=== PATIENT | male | born 1985 | race Caucasian/White ===

== ENCOUNTER 2023-08-13 23:20 | Emergency (ER) | payer OTHER, SELFPAY ==
[2023-08-13 23:22] VITALS: BP 131/72; PULSE 70; RESP 22; TEMP 36.8; O2SAT 96; BMI 31.7
--- NOTE | 2023-08-13 23:29 | ECG_ITS ---
APPROVED REPORT Exam: Resting ECG HR:77 bpm ECG Measurements Heart Rate 77 AXES IN 147 P 54 QRSd 88 QRS 75 QT 362 T 65 QTc 394 Conclusion SINUS RHYTHM NORMAL ECG UNCONFIRMED REPORT Electronically signed by : Oleg Lopes MD 08/15/2023 15:07:43
[2023-08-13 23:34] VITALS: BP 131/72; PULSE 68; RESP 20; O2SAT 99
--- NOTE | 2023-08-13 23:41 | HMH.EDGENADL ---
Discharge Plan Disposition Patient Disposition: Home, Self-Care Condition: Good Prescriptions Prescriptions: New methocarbamol 500 mg tablet 1,500 mg PO Q6H PRN (Reason: neck ) 5 Days Qty: 30 0RF lidocaine 5 % adhesive patch,medicated 1 patch topical DAILY PRN (Reason: pain) Qty: 30 0RF Rx Instructions: leave on most painful area for up to 12 hrs No Action ranitidine HCl 150 MG tablet 150 mg PO DAILY amoxicillin 500 MG tablet 500 mg PO TID Referrals Follow up/Referrals: Provider,Referral, [Primary Care Provider] - See instructions Activity Restrictions/Add. Instructions Additional Instructions/Restrictions: Please take medications as prescribed. Please take Tylenol 1 g p.o. every 6 hours, ibuprofen 600 mg every 6 hours as needed for pain. please follow-up with your primary care provider. Please return to the emergency department if you develop any new or worsening symptoms or become concerned for your health. Clinical Impressions Clinical Impression: Strain of neck muscle Instructions Patient Instructions: DI for Neck Pain Discharge ED Provider: Eric Jordan General Adult HPI General Chief complaint: Neck Pain/Injury Stated complaint: Pain in neck Time Seen by Provider: 08/13/23 23:25 History of Present Illness HPI narrative: 38-year-old male reportedly previously healthy presents with worsening neck pain. He reports that he felt like he strained it days ago after he sneezed. It has slowly and gradually gotten worse. He now feels like it is spasming and very severe. He reports that it limits his range of motion of the neck due to pain. Reports no other associated trauma. He has no radiating numbness or weakness in the arms or legs. Reports he tried baclofen at home prior to arrival without improvement. Denies any history of injection drug use. He is not on any antipsychotics. He reports no fever or infectious symptoms of any kind. Denies headache. Related Data Home Medications Medication Instructions Recorded Confirmed ranitidine HCl 150 mg tablet 150 mg PO DAILY GERD 04/14/18 04/15/18 amoxicillin 500 mg tablet 500 mg PO TID dental infection 04/15/18 04/15/18 Previous Rx's Medication Instructions Recorded lidocaine 5 % topical patch 1 patch topical DAILY PRN pain #30 08/14/23 ea methocarbamol 500 mg tablet 1,500 mg PO Q6H PRN neck 5 days 08/14/23 #30 tabs Allergies Allergy/AdvReac Type Severity Reaction Status Date / Time No Known Allergies Allergy Verified 04/15/18 09:25 [facility] Disclaimer: The information contained in this section may have been updated after the patient was seen, as this information can be updated by other users. Social History Smoking Status: Current every day smoker tobacco type: pipe alcohol intake: current current occupational status: other Travel in the last 8 weeks: None ROS Obtained: Yes All systems reviewed & no additional complaints except as documented Physical Exam General General appearance: alert and anxious Head Head exam: atraumatic and normocephalic Eye Eye exam: Present normal appearance, PERRL and EOMI ENT ENT exam: Present normal oropharynx and normal external ear exam Neck Neck exam: Present other (Severe paraspinal tenderness to palpation, no overlying skin changes, patient is able to range neck mildly but with pain. Passive range of motion intact) Chest Chest inspection: Present normal inspection and symmetric chest wall rise; Absent tenderness Respiratory Respiratory exam: Present normal lung sounds bilaterally; Absent respiratory distress Cardiovascular Cardiovascular exam: Present regular rate and normal rhythm Abdominal Exam Abdominal exam: Present soft; Absent distention, tenderness or guarding Extremities Exam Extremities exam: Present normal inspection; Absent edema or joint swelling Back Exam Back exam: Present normal inspection; Absent tenderness Neurological
[2023-08-14] VITALS: BP 127/81; PULSE 70; RESP 16; O2SAT 96
--- NOTE | 2023-08-14 00:47 | PC.NURSE ---
in room talking with patient at this time.
[2023-08-14 01:02] VITALS: BP 122/63; PULSE 71; RESP 14; TEMP 36.6; O2SAT 95
== END 2023-08-14 01:03 | disposition home or self-care (01) ==
PROVIDERS: Emergency Provider Emergency Medicine
DX: S16.1XXA Strain of muscle, fascia and tendon at neck level, initial encounter (principal); F17.200 Nicotine dependence, unspecified, uncomplicated; X50.1XXA Overexertion from prolonged static or awkward postures, initial encounter; M54.2 Cervicalgia
CPT/HCPCS: 93005; 96374; 99284

== ENCOUNTER 2024-03-21 17:32 | Emergency (ER) | payer SELFPAY ==
[2024-03-21 18:15] VITALS: BP 142/97; PULSE 78; RESP 17; TEMP 37.3; O2SAT 98; BMI 34.8
--- NOTE | 2024-03-21 18:45 | EXP.UTC ---
Discharge Plan Disposition Patient Disposition: Home, Self-Care Condition: Good Prescriptions Prescriptions: New ondansetron 4 mg tablet,disintegrating 4 mg PO Q8H PRN (Reason: nausea and vomiting) Qty: 10 0RF No Action escitalopram oxalate 10 mg tablet 10 mg PO DAILY Patient Comments: TAKE 1 TABLET BY MOUTH ONCE DAILY hydroxyzine HCl 50 mg tablet 100 mg PO QID trazodone 100 mg tablet 100 mg PO HS Patient Comments: TAKE 1 TABLET BY MOUTH ONCE DAILY AT NIGHT DIRECTED FOR SLEEP Referrals Follow up/Referrals: Jolly Morfin APRN [Primary Care Provider] - See instructions Activity Restrictions/Add. Instructions Additional Instructions/Restrictions: Drink extra fluids with and between meals. If you have difficulty drinking, try very small amounts of water or suck on ice chips. ? Avoid fruit juices, as these do not replace minerals and can actually increase diarrhea. ? Children and adults can use sports drinks to replenish electrolytes. Younger children and infants should use products formulated for children, like oral rehydration solutions. ? Eat food in small amounts and let your stomach recover. ? Get lots of rest. You may feel tired or weak. ? No greasy or fried foods for the next 24-48 hours BRAT diet Bananas Rice Apples and [place] ? Make sure to drink plenty of liquids ? Return if needed ? Straight to ER if any life threatening symptoms ? Zofran as prescribed ? Follow up with family doctor in the next 48-72 hours if no improvement or any worsening of symptoms Clinical Impressions Clinical Impression: Nausea & vomiting Stand Alone Forms Stand Alone Forms: Work/School Release Instructions Patient Instructions: Nausea and Vomiting-Adult Discharge ED Provider: Ariadna Fay [facility] [place] General Stated complaint: vomiting, Mode of Arrival: Ambulatory Source of Information: Patient Limitations: No Limitations Time Seen by Provider: 03/21/24 18:45 Description of Symptoms (Recalled from Triage Doc. by RN): Pt's symptoms are vomiting. HEENT Symptoms (Recalled from RN notes): Yes Resp Symptoms (Recalled from RN notes): No Skin Symptoms (Recalled from RN notes): No MS Symptoms (Recalled from RN notes): No Functional Status (Recalled from RN notes): n/a History of Present Illness Provider Complaint: Patient states that has had the stomach bug and today he started with N/V States that he has been drinking liquid IV and it is helping but came in to get a note for work and something for the nausea Related Data Home Medications Medication Instructions Recorded Confirmed escitalopram oxalate 10 mg tablet 10 mg PO DAILY 10/14/23 03/21/24 hydroxyzine HCl 50 mg tablet 100 mg PO QID 10/14/23 03/21/24 trazodone 100 mg tablet 100 mg PO HS 10/14/23 03/21/24 Previous Rx's Medication Instructions Recorded ondansetron 4 mg disintegrating 4 mg PO Q8H PRN nausea and 03/21/24 tablet vomiting #10 tabs Allergies Allergy/AdvReac Type Severity Reaction Status Date / Time No Known Allergies Allergy Verified 03/21/24 18:31 Worker's Comp Is this a Worker's Comp case?: No [facility] Disclaimer: The information contained in this section may have been updated after the patient was seen, as this information can be updated by other users. Medical History (Updated 03/21/24 @ 18:52 by Ariadna Fay APRN) ADHD Social History Smoking Status: Current every day smoker tobacco type: e-cigarettes alcohol intake: current substance use type: marijuana current occupational status: other Travel in the last 8 weeks: None household members: spouse housing: apartment marital status: ROS Obtained: Yes All systems reviewed & no additional complaints except as documented and Yes Systems reviewed as appropriate & no additional complaints except as documented Constitutional Constitutional: Reports system reviewed and no additional complaints, except as documented and Reports as per HPI ENT Ears, Nose, Mouth, and Throat: Reports system reviewed and no additional complaints, except as documented and Reports as per HPI Cardiovascular Cardiovascular: Reports system reviewed and no additional complaints, except as documented and Reports as per HPI Respiratory Respiratory: Reports system reviewed and no additional complaints, except as documented and Reports as per HPI Gastrointestinal Gastrointestingal: Reports system reviewed and no additional complaints, except as documented, as per HPI, nausea and vomiting; Denies abdominal pain, cramping or diarrhea Physical Exam General General appearance: alert and in no apparent distress ENT ENT exam: Present mucous membranes moist Respiratory Respiratory exam: Present normal lung sounds bilaterally; Absent respiratory distress or wheezes Cardiovascular Cardiovascular exam: Present regular rate, normal rhythm and normal heart sounds Abdominal Exam Abdominal exam: Present soft and normal bowel sounds; Absent distention or tenderness Neurological Exam Neurological exam: Present alert, oriented X3 and normal gait Medical Decision Making Chente Inquiry Pt receiving controlled substance: No Chente was queried for this patient: No Vital Signs: 03/21/24 18:15 Temperature 99.1 F Temperature Source Oral Pulse Rate [Right Radial] 78 Respiratory Rate 17 Blood Pressure [Right Arm] 142/97 H Blood Pressure Mean [Right Arm] 112 Blood Pressure Source [Right Arm] Automatic Cuff Blood Pressure Position [Right Arm] Sitting 02 Sat by Pulse Oximetry 98 Oxygen Delivery Method Room Air Medical Decision Narrative: Medication discussed with pharmacy
[2024-03-21] MEDS: ONDANSETRON 4MG ODT 4 MG SL (18:57)
[2024-03-21 19:14] VITALS: BP 142/97; PULSE 78; RESP 17; TEMP 37.3; O2SAT 98
== END 2024-03-21 19:13 | disposition home or self-care (01) ==
PROVIDERS: Emergency Provider Nurse Practitioner; PCP Nurse Practitioner Family
DX: R11.2 Nausea with vomiting, unspecified (principal); F17.290 Nicotine dependence, other tobacco product, uncomplicated
CPT/HCPCS: 99204; 99212; G0463

== ENCOUNTER 2024-05-15 08:09 | Emergency (ER) | payer SELFPAY ==
[2024-05-15 08:25] VITALS: BP 172/114; PULSE 80; RESP 18; TEMP 36.8; O2SAT 96; BMI 34.5
--- NOTE | 2024-05-15 08:50 | ED_ITS ---
Discharge Plan Disposition Patient Disposition: Home, Self-Care Condition: Good Prescriptions Prescriptions: New ondansetron 4 mg tablet,disintegrating 4 mg PO Q8H PRN (Reason: nausea and vomiting) Qty: 10 0RF losartan 50 mg tablet 50 mg PO DAILY Qty: 30 0RF No Action escitalopram oxalate 10 mg tablet 10 mg PO DAILY Patient Comments: TAKE 1 TABLET BY MOUTH ONCE DAILY hydroxyzine HCl 50 mg tablet 100 mg PO QID trazodone 100 mg tablet 100 mg PO HS Patient Comments: TAKE 1 TABLET BY MOUTH ONCE DAILY AT NIGHT DIRECTED FOR SLEEP ondansetron 4 mg tablet,disintegrating 4 mg PO Q8H PRN (Reason: nausea and vomiting) Qty: 10 0RF Referrals Follow up/Referrals: Provider,Referral, MD [Primary Care Provider] - See instructions Activity Restrictions/Add. Instructions Additional Instructions/Restrictions: Make follow up with a primary care provider. Check BP at least 3 times a week. Keep record for PCP. Clinical Impressions Clinical Impression: Gastroenteritis Hypertension Qualifiers: Hypertension type: unspecified Qualified Code(s): I10 - Essential (primary) hypertension Instructions Patient Instructions: Hypertension (Alternative Therapy), Essential Hypertension, DI for Viral Gastroenteritis -- Adult Discharge ED Provider: Jolly Paniagua [facility] [place] HPI General Stated complaint: Body aches, vomiting, abd pain Mode of Arrival: Ambulatory Source of Information: Patient Limitations: No Limitations Time Seen by Provider: 05/15/24 08:49 Description of Symptoms (Recalled from Triage Doc. by RN): PATIENT C/O NAUSEA, BODY ACHES, AND LOWER ABDOMINAL PAIN HEENT Symptoms (Recalled from RN notes): No Resp Symptoms (Recalled from RN notes): No Skin Symptoms (Recalled from RN notes): No MS Symptoms (Recalled from RN notes): No Functional Status (Recalled from RN notes): WNL History of Present Illness Provider Complaint: Pt states that he has not felt well since Wednesday. He reports that he has been sick to his stomach with some vomiting and lower abdominal pain. He reports regular bowel movements and denies excessive gas. He states that his mid back has been hurting, but feels this may be due to his job. He reports that he woke up drenched with sweat this morning and is sw eating today. He has not taken anything for his symptoms. Related Data Home Medications Medication Instructions Recorded Confirmed escitalopram oxalate 10 mg tablet 10 mg PO DAILY 10/14/23 03/21/24 hydroxyzine HCl 50 mg tablet 100 mg PO QID 10/14/23 03/21/24 trazodone 100 mg tablet 100 mg PO HS 10/14/23 03/21/24 Previous Rx's Medication Instructions Recorded ondansetron 4 mg disintegrating 4 mg PO Q8H PRN nausea and 03/21/24 tablet vomiting #10 tabs losartan 50 mg tablet 50 mg PO DAILY #30 tabs 05/15/24 ondansetron 4 mg disintegrating 4 mg PO Q8H PRN nausea and 05/15/24 tablet vomiting #10 tabs Allergies Allergy/AdvReac Type Severity Reaction Status Date / Time No Known Allergies Allergy Verified 03/21/24 18:31 Worker's Comp Is this a Worker's Comp case?: No [facility] Disclaimer: The information contained in this section may have been updated after the patient was seen, as this information can be updated by other users. Medical History (Updated 05/15/24 @ 10:42 by Jolly Paniagua APRN) ADHD Social History Smoking Status: Current every day smoker tobacco type: e-cigarettes alcohol intake: current alcohol intake frequency: other substance use type: marijuana current occupational status: other Travel in the last 8 weeks: None household members: spouse housing: apartment marital status: ROS Obtained: Yes All systems reviewed & no additional complaints except as documented Constitutional Constitutional: Reports system reviewed and no additional complaints, except as documented, Reports body ache, Reports chills and Reports malaise Eyes Eyes: Reports system reviewed and no additional complaints, except as documented ENT Ears, Nose, Mouth, and Throat: Reports system reviewed and no additional complaints, except as documented Cardiovascular Cardiovascular: Reports system reviewed and no additional complaints, except as documented Respiratory Respiratory: Reports system reviewed and no additional complaints, except as documented Gastrointestinal Gastrointestingal: Reports system reviewed and no additional complaints, except as documented, abdominal pain, nausea and vomiting Genitourinary Male Genitourinary: Reports system reviewed and no additional complaints, except as documented Musculoskeletal Musculoskeletal: Reports system reviewed and no additional complaints, except as documented Integumentary/Breasts Skin/Breast: Reports system reviewed and no additional complaints, except as documented Neurologic Neurologic: Reports system reviewed and no additional complaints, except as documented Endocrine Endocrine: Reports system reviewed and no additional complaints, except as documented Hematologic/Lymphatic Henatologic/Lymphatic: Reports system reviewed and no additional complaints, except as documented Allergic/Immunologic Allergic/Immunologic: Reports system reviewed and no additional complaints, except as documented Physical Exam General General appearance: alert and in no apparent distress Head Head exam: atraumatic and normocephalic Eye Eye exam: Present normal appearance ENT ENT exam: Present normal exam and normal oropharynx Neck Neck exam: Present normal inspection Chest Chest inspection: Present normal inspection and symmetric chest wall rise Respiratory Respiratory exam: Present normal lung sounds bilaterally Cardiovascular Cardiovascular exam: Present regular rate, normal rhythm and normal heart sounds Abdominal Exam Abdominal exam: Present soft, tenderness and hyperactive bowel sounds Abdominal tenderness: Present suprapubic Back Exam Back exam: Present normal inspection and paraspinal tenderness (Thoracic) Neurological Exam Neurological exam: Present alert and oriented X3 Psychiatric Psychiatric exam: Present normal affect and normal mood Skin Skin exam: Present warm and diaphoresis Lymphatic Lymphatic Findings: no adenopathy Medical Decision Making Chente Inquiry Pt receiving controlled substance: No Chente was queried for this patient: No Vital Signs: 05/15/24 08:25 Temperature 98.3 F Temperature Source Oral Pulse Rate [Left Brachial] 80 Respiratory Rate 18 Blood Pressure [Left Arm] 172/114 H Blood Pressure Mean [Left Arm] 133 Blood Pressure Source [Left Arm] Automatic Cuff Blood Pressure Position [Left Arm] Sitting 02 Sat by Pulse Oximetry 96 Oxygen Delivery Method Room Air Lab Data Lab results reviewed: Yes I reviewed the patient's lab results.
[2024-05-15 09:10] VITALS: BP 164/79
[2024-05-15 10:25] LABS: Apearance,Urine Clear (Clear); Color,Urine Amber (Yellow); Protein,Urine Trace (Negative); Specific Gravity, Urine 1.015 (1.005-1.030)
[2024-05-15 10:26] LABS: Bilirubin,Urine Negative (Negative); Blood, Urine Negative (Negative); Glucose,Urine (UA) Negative (Negative); Ketones,Urine Negative (Negative); UTC Leukocyte Esterase,Urine Negative (Negative); UTC Nitrate,Urine Negative (Negative); Urobilinogen,Urine 1 EU/dl (0.2)
[2024-05-15 10:47] VITALS: BP 164/79; PULSE 80; RESP 18; TEMP 36.8; O2SAT 96
== END 2024-05-15 10:52 | disposition home or self-care (01) ==
PROVIDERS: Emergency Provider Nurse Practitioner Family
DX: A08.4 Viral intestinal infection, unspecified (principal); R10.9 Unspecified abdominal pain; R11.2 Nausea with vomiting, unspecified; R68.83 Chills (without fever); R53.81 Other malaise; I10 Essential (primary) hypertension; F17.290 Nicotine dependence, other tobacco product, uncomplicated
CPT/HCPCS: 81003; 99212; 99214; G0463